=== PATIENT | female | born 1975 | race Caucasian/White ===

== ENCOUNTER 2021-09-17 14:06 | Emergency (ER) | payer MEDICAID ==
[~2021-09-17] VITALS: Ht 160 cm; Wt 75.7 kg
[2021-09-17 14:11] VITALS: BP 153/85
--- NOTE | 2021-09-17 14:17 | NUR ---
AMBULATED TO BED 3
--- NOTE | 2021-09-17 14:27 | NUR ---
45 YEARS OLD FEMALE ALERT, ORIENTED X4 PRESENTS TO ER WITH EXACERBATION OF RIGHT ARM CARPAL TUNNEL SYNDROME AND BOTH EYES RED.
[2021-09-17] MEDS ORDERED: KETOROLAC 30 MG/ML VIAL IM ONE (14:45)
[2021-09-17] MEDS ORDERED: POLY10SO OP (14:45)
[2021-09-17] MEDS ORDERED: TRAM50TA1 PO (14:45)
[2021-09-17 15:04] VITALS: BP 140/80
--- NOTE | 2021-09-17 15:07 | NUR ---
PATIENT CONDITION STABLE TOLERATED IM TORADOL WELL, D/C HOME WITH INSTRUCTIONS AFTER CARE REVIEWED UNDERSTOOD LEFT ER VIA SELF AMBULATORY WITH STEADY GAIT.
== END 2021-09-17 14:41 | disposition home or self-care (01) ==
LOC: MED 14:06
DX: H10.9 Unspecified conjunctivitis (principal); G56.03 Carpal tunnel syndrome, bilateral upper limbs; Z79.899 Other long term (current) drug therapy
CPT/HCPCS: 96372; 99283; J1885

== ENCOUNTER 2021-10-02 22:44 | Emergency (ER) | payer MEDICAID ==
[~2021-10-02] VITALS: Ht 164.1 cm; Wt 75.8 kg
[~2021-10-02 22:44] MED LIST: POLY10SO OP; TRAM50TA1 PO
[2021-10-02 22:59] VITALS: BP 128/80
--- NOTE | 2021-10-02 23:00 | NUR ---
45 YO F BIB SELF WITH C/C OF 04/23 ABD PAIN XTHURSDAY. REPORTS DECREASED APPETITE, N/D. DENIES BLOOD IN STOOL. DENIES VOMITING. TOOK DRAMAMINE X2HRS, WITH SOME RELIEF. STATES EVERYTHING SHE EATS CAUSES DIARRHEA. DENIES HX, RX AND ALLERGIES
--- NOTE | 2021-10-02 23:06 | NUR ---
PT BACK IN LOBBY WAITING FOR BED.
[2021-10-03 00:30] LABS: APPEARANCE,URINE CLEAR (CLEAR); BILIRUBIN,URINE NEGATIVE (NEGATIVE); BLOOD, URINE TRACE-L (NEGATIVE); COLOR,URINE YELLOW (YELLOW); LEUKOCYTE ESTERASE ,URINE TRACE (NEGATIVE); NITRITE, URINE NEGATIVE (NEGATIVE); UGLUCOSE NEGATIVE (NEGATIVE)
[2021-10-03 00:31] LABS: BASOPHILS % (AUTO) 0.2 % (0.0-2.0); EOSINOPHILS # (AUTO) 0.1 K/uL (0-0.4); EOSINOPHILS % (AUTO) 0.7 % (0.0-4.0); HEMATOCRIT 38.9 % (36-48); HEMOGLOBIN 13.1 g/dL (12.0-16.0); LYMPHOCYTES # (AUTO) 2.8 K/uL (2.5-16.5); LYMPHOCYTES % (AUTO) 36.3 % (20.5-51.1); MEAN CORPUSCULAR HEMOGLOBIN 30 pg (27-31); MEAN CORPUSCULAR HGB CONC 34 g/dL (33-37); MONOCYTES # (AUTO) 0.9 K/uL (0.8-1.0); MONOCYTES % (AUTO) 12.3 % (1.7-9.3); NEUTROPHILS # (AUTO) 3.9 K/uL (1.8-7.7); NEUTROPHILS % (AUTO) 50.5 % (42.2-75.2); PLATELET COUNT (AUTO) 263 K/uL (140-450); RED BLOOD CELL COUNT(AUTO) 4.32 MIL/uL (4.20-5.40); RED CELL DISTRIBUTION WIDTH 14.3 % (11.6-13.7); WHITE BLOOD COUNT (AUTO) 7.6 K/uL (4.8-10.8)
[2021-10-03 00:49] LABS: RBC,URINE 0-5 /HPF (0-5); WBC,URINE 0-5 /HPF (0-5)
[2021-10-03 00:52] LABS: ALBUMIN 3.4 g/dL (3.4-5.0); ANION GAP 12.5 (8-16); CREATININE 0.6 mg/dL (0.6-1.3); POTASSIUM 3.5 mmol/L (3.5-5.1); TOTAL BILIRUBIN 0.2 mg/dL (0.0-1.0)
--- NOTE | 2021-10-03 01:00 | NUR ---
DR. SUERO ASSESSED IN TRIAGE.
[2021-10-03] MEDS ORDERED: ONDANSETRON 4 MG/2 ML VIAL IVP ONE (01:05)
[2021-10-03] MEDS ORDERED: NACL 0.9% 1,000 ML IV ONE (01:05)
[2021-10-03 01:33] LABS: PROTHROMBIN TIME 11.5 secs (10.8-13.4)
--- NOTE | 2021-10-03 02:14 | NUR ---
PT IN CHAIR B.
[2021-10-03] MEDS ORDERED: ONDANSETRON 4 MG/2 ML VIAL ONE (02:52)
--- NOTE | 2021-10-03 03:31 | NUR ---
PT ASSISTED TO BED 8. CONNECTED IV DRIP NS
[2021-10-03] MEDS ORDERED: MORPHINE SULFATE 4 MG/ML SYR IVP ONE (03:40)
--- NOTE | 2021-10-03 03:47 | NUR ---
pt placed on cardiac and o2 monitor before morphine admin.
[2021-10-03] MEDS ORDERED: CEPH-588 PO (05:02)
[2021-10-03] MEDS ORDERED: ONDA-188 PO (05:02)
[2021-10-03] MEDS ORDERED: cephALEXin 500 MG CAP ONE (05:12)
[2021-10-03 05:22] VITALS: BP 93/57
--- NOTE | 2021-10-03 05:59 | NUR ---
Patient discharged with v/s stable. Written and verbal after care instructions given and explained. Patient verbalized understanding. Ambulatory with steady gait. All questions addressed prior to discharge. Advised to follow up with PMD.
--- NOTE | 2021-10-03 06:05 | NUR ---
The patient's care was reviewed and supervised by Britney Arshad RN.
[2021-10-04 10:06] LABS: HEPATITIS A ANTIBODY IGM Negative (Negative); HEPATITIS B CORE AB TOTAL Negative (Negative); HEPATITIS B SURFACE ANTIBODY Non Reactive (.); HEPATITIS B SURFACE ANTIGEN Negative (Negative)
== END 2021-10-03 05:22 | disposition home or self-care (01) ==
LOC: MED 22:44
DX: N39.0 Urinary tract infection, site not specified (principal); R11.2 Nausea with vomiting, unspecified; R94.5 Abnormal results of liver function studies; R10.9 Unspecified abdominal pain; Z79.899 Other long term (current) drug therapy
CPT/HCPCS: 36415; 74176; 80053; 81001; 81025; 83690; 85025; 85610; 86704; 86706; 86708; 86709; 86803; 87086; 87340; 96361; 96374; 96375; 99285; G0480; J2270; J2405; J7030

== ENCOUNTER 2021-11-22 18:34 | Emergency (ER) | payer MEDICAID ==
[~2021-11-22] VITALS: Ht 162.6 cm; Wt 74.4 kg
[~2021-11-22 18:34] MED LIST changes: +CEPH-588 PO; +ONDA-188 PO
[2021-11-22 18:41] VITALS: BP 131/93
--- NOTE | 2021-11-22 18:56 | NUR ---
C/O DIFFICULTY BREATHING, DIZZINESS, ROSALES XTODAY. O2 SAT 99% AT THIS TIME. 0/10 PAIN AT THIS TIME. COVID TESTED+ IN OCT 2021 & NEGATIVE 2 WEEK AGO. PMH: DENIES
--- NOTE | 2021-11-22 19:16 | NUR ---
PT TAKEN TO X RAY.
--- NOTE | 2021-11-22 19:24 | NUR ---
Blood drawn by director of grants at chair 1.
--- NOTE | 2021-11-22 19:52 | NUR ---
PA. Holly at the chair 1 to exam patient.
[2021-11-22 20:00] LABS: BASOPHILS % (AUTO) 0.3 % (0.0-2.0); EOSINOPHILS # (AUTO) 0.1 K/uL (0-0.4); EOSINOPHILS % (AUTO) 0.9 % (0.0-4.0); HEMATOCRIT 40.4 % (36-48); HEMOGLOBIN 13.5 g/dL (12.0-16.0); LYMPHOCYTES % (AUTO) 28.2 % (20.5-51.1); MEAN CORPUSCULAR HEMOGLOBIN 30 pg (27-31); MEAN CORPUSCULAR HGB CONC 33 g/dL (33-37); MEAN CORPUSCULAR VOLUME 89.3 fL (80-94); MONOCYTES # (AUTO) 0.6 K/uL (0.8-1.0); NEUTROPHILS # (AUTO) 6.8 K/uL (1.8-7.7); NEUTROPHILS % (AUTO) 64.6 % (42.2-75.2); PLATELET COUNT (AUTO) 370 K/uL (140-450); RED BLOOD CELL COUNT(AUTO) 4.52 MIL/uL (4.20-5.40); RED CELL DISTRIBUTION WIDTH 14.5 % (11.6-13.7); WHITE BLOOD COUNT (AUTO) 10.5 K/uL (4.8-10.8)
[2021-11-22 20:16] LABS: ANION GAP 12.9 (8-16); CARBON DIOXIDE 26.6 mmol/L (21-32); CREATININE 0.6 mg/dL (0.6-1.3); POTASSIUM 3.5 mmol/L (3.5-5.1)
[2021-11-22] MEDS ORDERED: ACET-10509 PO (20:26)
[2021-11-22] MEDS ORDERED: POLY10SO OP (20:26)
[2021-11-22] MEDS ORDERED: ONDA-188 PO (20:26)
[2021-11-22 20:37] VITALS: BP 131/93
--- NOTE | 2021-11-22 20:37 | NUR ---
Patient discharged with v/s stable. Written and verbal after care instructions given and explained. Patient alert, oriented and verbalized understanding of instructions. Ambulatory with steady gait. All questions addressed prior to discharge. ID band removed. Patient advised to follow up with PMD. Rx of Zofran, Tylenol and Polytrim eye drops. given. Patient educated on indication of medication including possible reaction and side effects. Opportunity to ask questions provided and answered.
== END 2021-11-22 20:37 | disposition home or self-care (01) ==
LOC: MED 18:34
DX: R42 Dizziness and giddiness (principal); H10.33 Unspecified acute conjunctivitis, bilateral; Z79.899 Other long term (current) drug therapy
CPT/HCPCS: 36415; 71045; 80048; 81002; 81025; 84484; 85025; 93005; 99285

== ENCOUNTER 2022-10-31 16:13 | Emergency (ER) | payer MEDICAID ==
[~2022-10-31] VITALS: Ht 162.6 cm; Wt 78.5 kg
[~2022-10-31 16:13] MED LIST changes: +ACET-10509 PO; +TRAM-748 PO; -TRAM50TA1 PO
[2022-10-31 16:40] VITALS: BP 114/68
--- NOTE | 2022-10-31 17:05 | NUR ---
46/F PRESENTS TO ED WITH C/O HEART BURN, BURNING IN THROAT AND INTERMITTENT EPISODES OF LOSS OF VOICE X3 WEEKS, REPORTS TAKING OTC HEART BURN MEDS WITH NO RELIEF. DENIES CP, SOB, STATES EPISODES ARE WORSE AT NIGHT WHEN SHE TRIES TO LAY DOWN, DENIES USE OF ALCOHOL OR CONSUMPTION OF SPICY FOODS.
[2022-10-31] MEDS ORDERED: OMEP20EC11 PO (17:38)
[2022-10-31 17:58] VITALS: BP 125/73
--- NOTE | 2022-10-31 17:58 | NUR ---
Patient discharged with v/s stable. Written and verbal after care instructions given. Patient alert, oriented and verbalized understanding of instructions. Ambulatory with steady gait. All questions addressed prior to discharge. ID band removed. Patient advised to follow up with PMD. Rx of Prilosec given. Opportunity to ask questions provided and answered.
== END 2022-10-31 17:58 | disposition home or self-care (01) ==
LOC: MED 16:13
DX: J02.9 Acute pharyngitis, unspecified (principal); Z79.899 Other long term (current) drug therapy; Z79.2 Long term (current) use of antibiotics; Z79.891 Long term (current) use of opiate analgesic
CPT/HCPCS: 99283